=== PATIENT | male | born 1970 | race Caucasian/White ===

== ENCOUNTER 2018-07-05 17:59 | Emergency (ER) | payer OTHER ==
[2018-07-05 18:20] VITALS: TEMP 98.8
[2018-07-05] MEDS ORDERED: MORPHINE SULFATE 4 MG/ML SYRINGE IV STA (19:30)
[2018-07-05] MEDS ORDERED: ASPIRIN 81 MG PO STA (19:30)
[2018-07-05] MEDS ORDERED: SODIUM CHLORIDE 0.9% 1,000 ML IV STA (19:30)
[2018-07-05] MEDS ORDERED: ONDANSETRON 4 MG/2 ML VIAL IVP STA (19:30)
--- NOTE | 2018-07-05 19:30 | ED ---
General Adult HPI - General Chief complaint: Abdominal Pain Stated complaint: Abd.pain Time Seen by Provider: 07/05/18 19:11 Source: patient, RN notes reviewed Mode of arrival: ambulatory Limitations: no limitations - History of Present Illness Initial comments: 48-year-old male presents to the emergency department for a chief complaint of abdominal pain 4 days. Patient states this started as upper abdominal pain and has progressed to lower abdominal pain. He states it is a "sharp, stabbing , cramping" pain around his "beltline". Patient states he did have sharp epigastric pain that has been intermittent as well. Patient admits to a few episodes of diarrhea with the last one being about 30 minutes ago. He denies any shortness of breath, does admit to feelings of tiredness. Patient also has been nauseous, has not had an appetite. Patient saw his primary care provider today who recommended he come to the emergency department for a CAT scan. Patient has no other complaints at this time including shortness of breath, chest pain, vomiting, headache, or visual changes. - Related Data Home Medications Medication Instructions Recorded Confirmed Atenolol [Tenormin] 50 mg PO BID 07/05/18 07/05/18 Atorvastatin [Lipitor] 20 mg PO DAILY 07/05/18 07/05/18 Citalopram Hydrobromide [CeleXA] 20 mg PO DAILY 07/05/18 07/05/18 Empagliflozin [Jardiance] 25 mg PO DAILY 07/05/18 07/05/18 Insulin Aspart [NovoLOG] 0 units SQ DIRECTED 07/05/18 07/05/18 Insulin Glargine [Lantus] 22 unit SQ HS 07/05/18 07/05/18 Multivitamins, Thera [Multivitamin 1 tab PO DAILY 07/05/18 07/05/18 (formulary)] Omeprazole 40 mg PO DAILY 07/05/18 07/05/18 Ondansetron [Zofran] 4 mg PO BID 07/05/18 07/05/18 Pioglitazone [Actos] 30 mg PO MOWEFR 07/05/18 07/05/18 Triamterene-Hctz 37.5-25Mg 1 cap PO DAILY 07/05/18 07/05/18 [Dyazide 37.5-25 Capsule] Varenicline [Chantix Continuing 1 mg PO BID 07/05/18 07/05/18 Pack] metFORMIN HCL 1,000 mg PO BID 07/05/18 07/05/18 Previous Rx's Medication Instructions Recorded Dicyclomine [Bentyl] 20 mg PO TID PRN #20 tablet 07/05/18 Allergies Allergy/AdvReac Type Severity Reaction Status Date / Time No Known Allergies Allergy Verified 07/05/18 21:23 Review of Systems ROS Statement: Those systems with pertinent positive or pertinent negative responses have been documented in the HPI. ROS Other: All systems not noted in ROS Statement are negative. Past Medical History Past Medical History: Diabetes Mellitus, GERD/Reflux, Hypertension History of Any Multi-Drug Resistant Organisms: None Reported Past Surgical History: Back Surgery Additional Past Surgical History / Comment(s): mole removal Past Psychological History: No Psychological Hx Reported Smoking Status: Current every day smoker Past Alcohol Use History: None Reported Past Drug Use History: None Reported General Exam Limitations: no limitations General appearance: alert, in no apparent distress Head exam: Present: atraumatic, normocephalic, normal inspection Eye exam: Present: normal appearance, PERRL, EOMI. Absent: scleral icterus, conjunctival injection, periorbital swelling ENT exam: Present: normal exam, mucous membranes moist Neck exam: Present: normal inspection, full ROM. Absent: tenderness, meningismus, lymphadenopathy Respiratory exam: Present: normal lung sounds bilaterally. Absent: respiratory distress, wheezes, rales, rhonchi, stridor Cardiovascular Exam: Present: regular rate, normal rhythm, normal heart sounds. Absent: systolic murmur, diastolic murmur, rubs, gallop, clicks GI/Abdominal exam: Present: soft, tenderness (Patient is a tenderness in the left upper quadrant, left lower quadrant, right lower quadrant. Tenderness is worse in the lower abdomen. No tenderness in the right upper quadrant), normal bowel sounds. Absent: distended, guarding, rebound, rigid Neurological exam: Present: alert, oriented X3, CN II-XII intact Psychiatric exam: Present: normal affect, normal mood Course Vital Signs 07/05/18 07/05/18 07/05/18 18:17 20:00 21:00 Temperature 98.8 F Pulse Rate 84 81 Respiratory 18 12 18 Rate Blood Pressure 127/83 140/88 124/73 O2 Sat by Pulse 98 94 L 95 Oximetry 07/05/18 07/05/18 07/05/18 22:00 22:30 22:54 Temperature Pulse Rate 84 74 Respiratory 15 50 H 16 Rate Blood Pressure 127/62 121/75 124/74 O2 Sat by Pulse 94 L 95 99 Oximetry EKG Findings - EKG Comments: EKG Findings:: Normal sinus rhythm, ventricular rate 82, ID interval 170, QTc 446, no evidence of ST elevation Medical Decision Making - Medical Decision Making 48-year-old male presents the emergency department for a chief complaint of abdominal pain 4 days. States this started as upper abdominal pain and has progressed to lower abdominal pain. States it is sharp and stabbing and cramping around his belt line. He did have epigastric pain that has been intermittent as well but has improved. He has had a few episodes of diarrhea as well as been nauseous but has not vomited. Exam shows lower abdominal tenderness without guarding, no right upper quadrant tenderness. CBC shows a mild white count of 11, likely reactive. CMP is unremarkable. Troponin is negative. EKG does not show any evidence of ST elevation or depression. Amylase and lipase are within normal limits. CT does not show any acute process. There are small amount of cholelithiasis percent in the lumen. Chest x-ray shows no acute process. Discussed with patient that this time we could do ultrasound of the gallbladder although pain is mostly lower abdomen. Patient states he would rather follow-up and is feeling better at this time. Patient will be given Bentyl for symptom managment. Discussed returning if he has worsening symptoms that she agrees with. - Lab Data Result diagrams: 07/05/18 19:21 07/05/18 19:21 Lab Results 07/05/18 07/05/18 07/05/18 Range/Units 19:21 19:21 19:21 WBC 11.4 H (3.8-10.6) k/uL RBC 5.31 (4.30-5.90) m/uL Hgb 16.7 (13.0-17.5) gm/dL Hct 47.4 (39.0-53.0) % MCV 89.2 (80.0-100.0) fL MCH 31.5 (25.0-35.0) pg MCHC 35.3 (31.0-37.0) g/dL RDW 13.6 (11.5-15.5) % Plt Count 205 (150-450) k/uL Neutrophils % 70 % Lymphocytes % 18 % Monocytes % 7 % Eosinophils % 2 % Basophils % 1 % Neutrophils # 8.0 H (1.3-7.7) k/uL Lymphocytes # 2.0 (1.0-4.8) k/uL Monocytes # 0.8 (0-1.0) k/uL Eosinophils # 0.3 (0-0.7) k/uL Basophils # 0.1 (0-0.2) k/uL PT (9.0-12.0) sec INR (<1.2) APTT (22.0-30.0) sec Sodium 138 (137-145) mmol/L Potassium 4.0 (3.5-5.1) mmol/L Chloride 101 (98-107) mmol/L Carbon Dioxide 26 (22-30) mmol/L Anion Gap 11 mmol/L BUN 15 (9-20) mg/dL Creatinine 0.85 (0.66-1.25) mg/dL Est GFR (CKD-EPI)AfAm >90 (>60 ml/min/1.73 sqM) Est GFR (CKD-EPI)NonAf >90 (>60 ml/min/1.73 sqM) Glucose 131 H (74-99) mg/dL POC Glucose (mg/dL) (75-99) mg/dL POC Glu [employer] Calcium 9.5 (8.4-10.2) mg/dL Magnesium 1.8 (1.6-2.3) mg/dL Total Bilirubin 0.6 (0.2-1.3) mg/dL AST 25 (17-59) U/L ALT 44 (21-72) U/L Alkaline Phosphatase 66 (38-126) U/L Total Creatine Kinase 170 (55-170) U/L CK-MB (CK-2) 2.7 H (0.0-2.4) ng/mL CK-MB (CK-2) Rel Index 1.6 Troponin I <0.012 (0.000-0.034) ng/mL Total Protein 7.9 (6.3-8.2) g/dL Albumin 4.6 (3.5-5.0) g/dL Amylase 36 (30-110) U/L Lipase 105 (23-300) U/L 01/08/19 01/08/19 Range/Units 19:21 19:47 WBC (3.8-10.6) k/uL RBC (4.30-5.90) m/uL Hgb (13.0-17.5) gm/dL Hct (39.0-53.0) % MCV (80.0-100.0) fL MCH (25.0-35.0) pg MCHC (31.0-37.0) g/dL RDW (11.5-15.5) % Plt Count (150-450) k/uL Neutrophils % % Lymphocytes % % Monocytes % % Eosinophils % % Basophils % % Neutrophils # (1.3-7.7) k/uL Lymphocytes # (1.0-4.8) k/uL Monocytes # (0-1.0) k/uL Eosinophils # (0-0.7) k/uL Basophils # (0-0.2) k/uL PT 9.5 (9.0-12.0) sec INR 0.9 (<1.2) APTT 24.8 (22.0-30.0) sec Sodium (137-145) mmol/L Potassium (3.5-5.1) mmol/L Chloride (98-107) mmol/L Carbon Dioxide (22-30) mmol/L Anion Gap mmol/L BUN (9-20) mg/dL Creatinine (0.66-1.25) mg/dL Est GFR (CKD-EPI)AfAm (>60 ml/min/1.73 sqM) Est GFR (CKD-EPI)NonAf (>60 ml/min/1.73 sqM) Glucose (74-99) mg/dL POC Glucose (mg/dL) 134 H (75-99) mg/dL POC Glu [employer] Elli Russell Calcium (8.4-10.2) mg/dL Magnesium (1.6-2.3) mg/dL Total Bilirubin (0.2-1.3) mg/dL AST (17-59) U/L ALT (21-72) U/L Alkaline Phosphatase (38-126) U/L Total Creatine Kinase (55-170) U/L CK-MB (CK-2) (0.0-2.4) ng/mL CK-MB (CK-2) Rel Index Troponin I (0.000-0.034) ng/mL Total Protein (6.3-8.2) g/dL Albumin (3.5-5.0) g/dL Amylase (30-110) U/L Lipase (23-300) U/L Disposition Clinical Impression: Abdominal pain Disposition: HOME SELF-CARE Condition: Good Instructions: Abdominal Pain (ED) Additional Instructions: Please follow up with primary care in 1-2 days. Follow up with GI as well. Take Bentyl as directed. Return immediately to the emergency department if you have any worsening symptoms. Prescriptions: Dicyclomine [Bentyl] 20 mg PO TID PRN #20 tablet PRN Reason: Pain Is patient prescribed a controlled substance at d/c from ED?: No Referrals: Benito Cotter MD [STAFF PHYSICIAN] - 1-2 days Jordan Barker MD [STAFF PHYSICIAN] - 1-2 days Time of Disposition: 22:55
[2018-07-05 20:08] LABS: Basophils # (A) 0.1 k/uL (0-0.2); Basophils % (A) 1 %; Eosinophils # (A) 0.3 k/uL (0-0.7); Eosinophils % (A) 2 %; HCT 47.4 % (39.0-53.0); HGB 16.7 gm/dL (13.0-17.5); Lymphocytes % (A) 18 %; MCH 31.5 pg (25.0-35.0); MCHC 35.3 g/dL (31.0-37.0); MCV 89.2 fL (80.0-100.0); Mean Platelet Volume 7.4; Monocytes # (A) 0.8 k/uL (0-1.0); Monocytes % (A) 7 %; Neutrophils % (A) 70 %; Platelet Count 205 k/uL (150-450); RBC 5.31 m/uL (4.30-5.90); RDW 13.6 % (11.5-15.5); WBC 11.4 k/uL (3.8-10.6)
[2018-07-05 20:08] LABS: Glucose,Whole Blood 134 mg/dL (75-99)
[2018-07-05 20:17] LABS: INR 0.9 (<1.2); Partial Thromboplastin Time 24.8 sec (22.0-30.0); Prothrombin Time 9.5 sec (9.0-12.0)
[2018-07-05 20:19] LABS: ALT 44 U/L (21-72); AST 25 U/L (17-59); Albumin 4.6 g/dL (3.5-5.0); Alkaline Phosphatase 66 U/L (38-126); Amylase 36 U/L (30-110); Anion Gap 11 mmol/L; Blood Urea Nitrogen 15 mg/dL (9-20); Calcium 9.5 mg/dL (8.4-10.2); Carbon Dioxide 26 mmol/L (22-30); Chloride 101 mmol/L (98-107); Glucose 131 mg/dL (74-99); Lipase 105 U/L (23-300); Magnesium 1.8 mg/dL (1.6-2.3); Sodium 138 mmol/L (137-145); Total Bilirubin 0.6 mg/dL (0.2-1.3); Total Protein 7.9 g/dL (6.3-8.2)
[2018-07-05 20:21] LABS: Creatine Kinase 170 U/L (55-170)
[2018-07-05 20:34] LABS: Creatine Kinase MB 2.7 ng/mL (0.0-2.4); Troponin I <0.012 ng/mL (0.000-0.034)
--- NOTE | 2018-07-05 21:59 | XR ---
EXAMINATION: XR chest 2V DATE AND TIME: 07/05/2018 9:44 PM CLINICAL INDICATION: PHH; Chest Pain TECHNIQUE: Departmental protocol COMPARISON: None FINDINGS: The hemidiaphragms are elevated consistent with lung inflation at the moment of x-ray exposure. The lungs appear to be clear. The pleural spaces are negative. The cardiac silhouette is not enlarged. The remainder of the mediastinal silhouette is unremarkable. The skeletal structures and soft tissues are negative for acute findings. IMPRESSION: NO DEFINITE ACUTE PROCESS.
--- NOTE | 2018-07-05 22:06 | CT ---
EXAMINATION TYPE: CT abdomen pelvis w con DATE OF EXAM: 07/05/2018 COMPARISON: HISTORY: Abdominal pain x4 days. CT DLP: 1814.9 mGycm Automated exposure control for dose reduction was used. TECHNIQUE: Helical acquisition of images was performed from the lung bases through the pelvis. CONTRAST: Performed without Oral Contrast and with IV Contrast, patient injected with 100ml mL of Isovue 300. FINDINGS: LUNG BASES: No significant abnormality is appreciated. LIVER/GB: No significant abnormality is appreciated. However, cholelithiasis occupies approximately 5 % of the lumen of the gallbladder. The gallbladder has otherwise normal appearance. PANCREAS: No significant abnormality is seen. SPLEEN: No significant abnormality is seen. ADRENALS: No significant abnormality is seen. KIDNEYS: No significant abnormality is seen. FREE AIR: No free air is visualized. RETROPERITONEAL ADENOPATHY: None visualized REPRODUCTIVE ORGANS: No significant abnormality is seen URINARY BLADDER: No significant abnormality is seen. PELVIC ADENOPATHY: None visualized. OSSEOUS STRUCTURES: No significant abnormality is seen. BOWEL: No significant abnormality is seen. OTHER: No acute vascular findings. IMPRESSION: NO ACUTE PROCESS.
[2018-07-05 22:55] VITALS: BP 124/74; PULSE 74; RESP 16
== END 2018-07-05 22:59 | disposition home or self-care (01) ==
LOC: EC 17:59
DX: R10.30 Lower abdominal pain, unspecified (principal); R10.13 Epigastric pain; R10.10 Upper abdominal pain, unspecified; K80.20 Calculus of gallbladder without cholecystitis without obstruction; R19.7 Diarrhea, unspecified; R11.0 Nausea; R53.83 Other fatigue; R63.0 Anorexia; I10 Essential (primary) hypertension; E11.9 Type 2 diabetes mellitus without complications; K21.9 Gastro-esophageal reflux disease without esophagitis; F17.200 Nicotine dependence, unspecified, uncomplicated; Z79.4 Long term (current) use of insulin; Z79.899 Other long term (current) drug therapy
CPT/HCPCS: 36415; 93005; 80053; 82150; 82550; 82553; 83690; 83735; 84484; 85025; 85610; 85730; 71046; 74177; 99284; 96374; 96375; 96361; J2270; J2405; Q9967

== ENCOUNTER → 2018-08-22 | Outpatient (CLI) | payer OTHER ==
--- NOTE | 2018-08-22 16:37 | US ---
EXAMINATION TYPE: US abdomen complete DATE OF EXAM: 08/22/2018 COMPARISON: CT 2019 CLINICAL HISTORY: R10.84 Generalized abdominal pain. Intermittent epigastric and back pain and nausea x 2 months, gallstones seen on recent CT. EXAM MEASUREMENTS: Liver Length: 21.1 cm , normal less than 15.5 cm. Gallbladder Wall: 0.2 cm CBD: 0.5 cm Spleen: 12.3 cm Right Kidney: 12.7 x 6.7 x 5.7 cm Left Kidney: 12.1 x 6.2 x 6.2 cm Difficult and limited study due to patient body habitus Pancreas: obscured by overlying midline bowel gas Liver: enlarged, heterogeneous, attenuating, increased echogenicity, decreased visualization of vess els suggestive of fatty infiltrate Gallbladder: cholelithiasis Evidence for sonographic Griggs's sign: no CBD: visualized portions wnl, limited by overlying bowel gas Spleen: wnl Right Kidney: wnl Left Kidney: wnl Upper IVC: wnl Abd Aorta: visualized portions wnl, limited by overlying midline bowel gas IMPRESSION: 1. Exam limited due to patient body habitus. 2. Cholelithiasis. 3. Moderate fatty infiltration of the enlarged liver
== END | disposition home or self-care (01) ==
LOC: RADUSWWP 06:47
PROVIDERS: ATTEND Family Medicine
DX: K80.20 Calculus of gallbladder without cholecystitis without obstruction (principal); K76.0 Fatty (change of) liver, not elsewhere classified
CPT/HCPCS: 76700

== ENCOUNTER → 2019-03-30 | Outpatient (CLI) | payer OTHER ==
--- NOTE | 2019-03-30 22:33 | MR ---
EXAMINATION TYPE: MR knee LT wo con DATE OF EXAM: 03/30/2019 COMPARISON: NONE HISTORY: Left knee pain/effusion/osseous loose body/possible medial meniscal tear OR order. TECHNIQUE: Multiplanar, multisequence images of the knee is performed without IV contrast. FINDINGS: MEDIAL MENISCUS: Anterior horn is intact without tear. Posterior horn has faint oblique increased sig nal believed extending to inferior articular surface sagittal image 25. LATERAL MENISCUS: Anterior and posterior horns are intact without tear. CRUCIATE LIGAMENTS: The anterior and posterior cruciate ligaments are intact and unremarkable. COLLATERAL LIGAMENTS: The medial collateral ligament and lateral collateral ligament complex are inta ct and unremarkable. EXTENSOR MECHANISM: Visualized quadriceps and patellar tendons are intact. EFFUSION: There is small suprapatellar joint effusion. POPLITEAL CYST: There is moderate size popliteal/ohara cyst measuring 5.1 cm long axis sagittal image 21. TRICOMPARTMENT SPACES: Moderate narrowing patellofemoral compartment. Mild narrowing medial and later al tibiofemoral compartments. Mild to moderate tricompartment joint space spurring most prominent pat ellofemoral compartment CARTILAGE: . Chondromalacia patella with full-thickness cartilaginous loss along the superior aspect of posterior patellar pole. Some thinning of articular cartilage medial tibiofemoral compartment. BONE MARROW SIGNAL: Heterogeneity consistent with red marrow reconversion. Some heterogeneous increas ed T2 signal superior aspect posterior patellar pole axial image 21 for reference. OTHER: No additional significant abnormality is appreciated. IMPRESSION: 1. Fairly moderate tricompartment degenerative changes most prominent patellofemoral compartment wher e there is significant chondromalacia patella noted along superior portion of the joint space. 2. At least intrasubstance suspected full-thickness tear posterior horn medial meniscus. 3. Moderate size popliteal cyst. 4. Small suprapatellar joint effusion.
== END | disposition home or self-care (01) ==
LOC: RADMRIMAIN 16:38
PROVIDERS: ATTEND Orthopaedic Surgery Sports Medicine
DX: M17.12 Unilateral primary osteoarthritis, left knee (principal); M22.42 Chondromalacia patellae, left knee; M71.22 Synovial cyst of popliteal space [Baker], left knee

== ENCOUNTER 2020-03-29 09:11 | Day surgery (SDC) | payer OTHER ==
[2020-03-27 15:53] VITALS: BMI 39.0
[~2020-03-29 09:11] MED LIST: ACETAMINOPHEN TAB 500 MG TAB PO ONE; DEXAMETHASONE SOD PHOSPHATE 10 MG/ML 1 ML VIAL IV ONE; HEPARIN SODIUM,PORCINE 5,000 UNIT/ML 1 ML VIAL SQ ONE; KETOROLAC 15 MG/ML 1 ML VIAL IVP SCH; LACTATED RINGERS 1,000 ML IV SCH; LIDOCAINE 1% (10MG/ML) FOR IV START INTRADERMA PRN; METOCLOPRAMIDE 5 MG/ML 2 ML VIAL IVP PRN; ONDANSETRON 4 MG/2 ML VIAL IVP ONE; SCOPOLAMINE 1.5MG/72HR PATCH TRANSDERM ONE; ceFAZolin 3 GM in SODIUM CHLORIDE 0.9% 100 ML IVPB ONE
[2020-03-29 09:57] LABS: Glucose,Whole Blood 139 mg/dL (75-99)
[2020-03-29 10:21] VITALS: RESP 16
[2020-03-29] MEDS ORDERED: PROPOFOL 10 MG/ML 20 ML VIAL IV ONE ×2 (10:37)
[2020-03-29] MEDS ORDERED: LIDOCAINE 1% INJ 10MG/ML (20 ML MDV) ONE (10:37)
[2020-03-29] MEDS ORDERED: ROCURONIUM BROMIDE 10 MG/ML 5 ML VIAL IV ONE (10:37)
[2020-03-29] MEDS ORDERED: HYDROmorphone (PF) 1 MG/ML ONE (10:37)
[2020-03-29] MEDS ORDERED: fentaNYL (PF) 50 MCG/ML 2 ML AMP ONE (10:37)
[2020-03-29] MEDS ORDERED: MIDAZOLAM 2 MG/2 ML VIAL ONE (10:37)
[2020-03-29] MEDS ORDERED: BUPIVACAINE (PF) 0.25% 30 ML VIAL SQ ONE (10:49)
[2020-03-29] MEDS ORDERED: LACTATED RINGERS 1,000 ML IV ONE (11:46)
[2020-03-29 12:09] VITALS: TEMP 97.4
[2020-03-29] MEDS ORDERED: NALOXONE 0.4 MG/ML 1 ML VIAL IV PRN (12:12)
[2020-03-29] MEDS ORDERED: HYDROcodone/APAP 5-325MG 1 EACH TAB PO PRN (12:12)
--- NOTE | 2020-03-29 12:16 | P.OP ---
Date of Procedure: 03/29/20 Procedure(s) Performed: PREOPERATIVE DIAGNOSIS: Chronic cholecystitis POSTOPERATIVE DIAGNOSIS: Same PROCEDURE: Laparoscopic cholecystectomy SURGEON: Val EBL: Minimal see anesthesia record ANESTHESIA: Gen. COMPLICATIONS: None OPERATIVE PROCEDURE: The patient was brought and placed on the operating room table in the supine position. The patient was placed under general anesthesia at that time. The abdomen was prepped and draped in the usual sterile fashion. A small vertical infraumbilical incision was made. The fascia was grasped with the Abiel forceps. The fascia was retracted anteriorly. The Veress needle was advanced into the peritoneal cavity. The saline drop test was normal. Insufflation took place up to 15 mmHg. A 5 mm optical trocar was advanced and the peritoneal cavity. 2 additional 5 mm trochars were placed in the right upper quadrant under direct visualization. A 12 mm trocar was advanced into the epigastric incision site. The gallbladder was retracted superiorly and laterally. The peritoneum overlying the infundibulum was bluntly dissected. The patient's cystic duct was visualized. The junction between the cystic duct common and hepatic duct was identified. The cystic duct was then divided after placement of 3 12 mm clips on the patient's side and one on the specimen side. The cystic artery was identified and clipped as well. A small vessel was seen along the gallbladder fossa and clipped as well. The gallbladder was then removed from the liver bed using electrocautery. The gallbladder was then removed from the epigastric trocar site with an Endo Catch bag. The gallbladder fossa was irrigated with saline. There was no evidence of any bleeding or biliary drainage seen. The fascia at the 12 millimeter site was closed using a Torey-González 0 Vicryl stitch. The trochars were then removed. The skin at all 4 sites was closed using a 4-0 Monocryl stitch. Skin glue was utilized on the incision sites. At the end of this procedure the sponge and needle counts were correct. DISPOSITION: Stable to the recovery room
[2020-03-29] MEDS: HYDROmorphone 0.5 MG/0.5 ML SYRINGE IVP PRN ×2 (12:20→12:45)
[2020-03-29 12:46] LABS: Glucose,Whole Blood 178 mg/dL (75-99)
[2020-03-29 13:40] VITALS: BP 107/61; PULSE 86
== END 2020-03-29 14:21 | disposition home or self-care (01) ==
LOC: OR 09:11
PROVIDERS: ATTEND Surgery
DX: K80.10 Calculus of gallbladder with chronic cholecystitis without obstruction (principal); E11.9 Type 2 diabetes mellitus without complications; K21.9 Gastro-esophageal reflux disease without esophagitis; I10 Essential (primary) hypertension; E78.5 Hyperlipidemia, unspecified; G47.33 Obstructive sleep apnea (adult) (pediatric); E66.9 Obesity, unspecified; Z79.4 Long term (current) use of insulin; Z79.1 Long term (current) use of non-steroidal anti-inflammatories (NSAID); Z79.899 Other long term (current) drug therapy; Z79.891 Long term (current) use of opiate analgesic; Z98.890 Other specified postprocedural states; Z83.3 Family history of diabetes mellitus; Z82.49 Family history of ischemic heart disease and other diseases of the circulatory system; Z99.89 Dependence on other enabling machines and devices; Z87.891 Personal history of nicotine dependence; Z68.38 Body mass index [BMI] 38.0-38.9, adult
CPT/HCPCS: 88304; 47562; J2250; J1644; J1100; J0690; J2405; J2001; J3010; J1170 ×2; J1885; J2704

== ENCOUNTER → 2020-05-27 | Outpatient (CLI) | payer OTHER ==
--- NOTE | 2020-05-27 15:39 | XR ---
EXAMINATION TYPE: XR thoracic spine complete DATE OF EXAM: 05/27/2020 COMPARISON: NONE HISTORY: Chronic back pain. TECHNIQUE: 3 views submitted FINDINGS: Alignment is anatomic. There is no compression deformities. Hypertrophic and degenerative change of the spine. No compression deformities. Surgical clips in the gallbladder fossa. IMPRESSION: 1. Multilevel hypertrophic and degenerative change.
== END | disposition home or self-care (01) ==
LOC: RADXRMAIN 15:13
PROVIDERS: ATTEND Family Medicine
DX: M47.814 Spondylosis without myelopathy or radiculopathy, thoracic region (principal); M89.38 Hypertrophy of bone, other site
CPT/HCPCS: 72072

== ENCOUNTER → 2020-08-23 | Outpatient (CLI) | payer OTHER ==
--- NOTE | 2020-08-24 07:44 | MR ---
EXAMINATION TYPE: MR thoracic spine wo con DATE OF EXAM: 08/23/2020 COMPARISON: Thoracic spine x-ray August 23, 2020. HISTORY: Pain in thoracic spine for 3 months, prior surgery 20+ years ago. TECHNIQUE: Multiplanar, multisequence imaging of thoracic spine is performed without contrast FINDINGS: There is slight dextroconvex scoliotic curvature positioning centered operative midthoracic spine redemonstrated. Spinal cord shows normal caliber and signal as it courses the thoracic spine. Vertebral body heights and alignment are satisfactory. Disc space heights are maintained. Large po sterior disc herniation effaces the anterior thecal sac at T8-T9 level sagittal image 12. Smaller pos terior disc herniations noted T5-T6, T7-T8, T9-T10, T10-T11, and T11-T12 levels on sagittal images. B one marrow signal intensity is preserved. Mild to moderate multilevel anterior and lateral spurring i n the mid to lower thoracic spine is redemonstrated. Review of the axial images confirms largest disc herniation or left paracentral protrusion at T8-T9 l evel effacing left anterolateral thecal sac up to ventral surface of spinal cord which is indented on image 17 series 601. Similar prominent disc herniation T9-T10 level noted on image 15 series 601. S lightly less prominent disc herniations at T10-T11 level and other levels identified on sagittal imag es. T12-L1 level shows broad-based posterior disc protrusion effacing the anterior thecal sac along w ith mild/moderate facet arthropathy and ligament flavum hypertrophy pacing posterior lateral thecal s ac on image 2. Visualized thorax and upper abdomen are grossly unremarkable. IMPRESSION: Scoliotic curvature with multilevel degenerative changes, most prominent disc herniation noted at T8-T9 level. Further details as noted above.
== END | disposition home or self-care (01) ==
LOC: RADMRIMAIN 17:01
PROVIDERS: ATTEND Physical Medicine & Rehabilitation
DX: M51.24 Other intervertebral disc displacement, thoracic region (principal); E11.9 Type 2 diabetes mellitus without complications; M47.814 Spondylosis without myelopathy or radiculopathy, thoracic region; M41.26 Other idiopathic scoliosis, lumbar region; M41.84 Other forms of scoliosis, thoracic region
CPT/HCPCS: 72146

== ENCOUNTER 2020-10-11 07:18 | Day surgery (SDC) | payer OTHER ==
[2020-10-09 10:36] VITALS: BMI 39.0
[2020-10-11] MEDS ORDERED: LIDOCAINE 1% (10MG/ML) FOR IV START INTRADERMA ONE (07:41)
[2020-10-11] MEDS ORDERED: LACTATED RINGERS 1,000 ML IV ONE (07:41)
[2020-10-11 07:44] VITALS: TEMP 97.2
[2020-10-11 07:44] LABS: Glucose,Whole Blood 208 mg/dL (75-99)
[2020-10-11] MEDS ORDERED: INSULIN ASPART (NovoLOG) 100 UNIT/ML VIAL SQ ONE (07:47)
[2020-10-11] MEDS ORDERED: IOPAMIDOL M200 10 ML VIAL ONE (08:31)
[2020-10-11] MEDS ORDERED: TRIAMCINOLONE ACETONIDE 40 MG/ML 1 ML VIAL ONE (08:31)
[2020-10-11] MEDS ORDERED: LIDOCAINE 1% INJ 10MG/ML (20 ML MDV) ONE (08:31)
[2020-10-11] MEDS ORDERED: fentaNYL (PF) 50 MCG/ML 2 ML AMP ONE (08:32)
[2020-10-11] MEDS ORDERED: MIDAZOLAM 2 MG/2 ML VIAL ONE (08:32)
--- NOTE | 2020-10-11 09:02 | P.PCN ---
Date of Procedure: 10/11/20 Description of Procedure: PREOPERATIVE DIAGNOSIS: Thoracic radiculopathy POSTOPERATIVE DIAGNOSIS: Same PROCEDURE PERFORMED: Interlaminar Epidural Steroid Injection at the T8-T9 level, with a right paramedian approach under fluoroscopic guidance SURGEON: Jason Dinh MD ANESTHESIA: Local with 1% lidocaine 3 ml and IV sedation with Versed and fentanyl, Fluoroscopy was used for the procedure and images were saved in the radiology portion of the chart. EBL: Minimal PROCEDURE INDICATION: The patient presents with lumbar radicular symptoms unresponsive to conservative treatment. This is the [first/ second] cervical epidural steroid injection PROCEDURE DESCRIPTION / TECHNIQUE: The patient was seen and identified in the preoperative area. Risks, benefits, complications including but not limited to infections ,bleeding ,allergic reaction to the medications ,nerve damage and incomplete pain relief, and alternatives were discussed with the patient. The patient agreed to proceed with the procedure and signed the consent. IV was started, and vital signs were stable. Patient was taken to the OR and time out was completed. The patient was placed in the prone position on procedure table and a pillow was placed under the chest area. The cervical area was prepped and draped in the usual sterile fashion. Conscious sedation was used during the procedure to decrease patients anxiety. Vital signs was monitored during the entire procedure. Using anterior-posterior fluoroscopy, the T8-T9 interlaminar space was identified and the skin over this site was marked and then infiltrated with 1% lidocaine subcutaneously. Subsequently, a 20-gauge Tuohy epidural needle was inserted and advanced toward the epidural space using the loss of resistance technique and guided by AP and lateral views. The correct needle position in the epidural space was verified. After negative aspiration for blood and CSF and in the absence of paresthesias, Isovue 200 2 mL's was injected under live fluoroscopy with good epidural spread. After negative aspiration, a 5 mL mixture containing 3 mL PFNS, 1 mL lidocaine 1%, and 40 mg kenalog. Needle was withdrawn intact, skin was cleansed, and bandages were applied. COMPLICATIONS: None DISPOSITION / PLANS: The patient was placed in a supine position and transferred to the recovery area in a stable condition for observation. There was no evidence of lower extremity motor or sensory deficit after the procedure. Patient was discharged from the recovery room after meeting discharge criteria. Home discharge instructions were given to the patient by the staff. The patient will be scheduled a repeat procedure in the clinic in 2-4 weeks.
[2020-10-11] MEDS ORDERED: IV FLUID CONTINUATION 1,000 ML IV ONE (09:07)
[2020-10-11 09:24] VITALS: BP 128/81; PULSE 88; RESP 16
--- NOTE | 2020-10-11 09:45 | FL ---
EXAMINATION TYPE: FL guided pain mgmt statistic DATE OF EXAM: 10/11/2020 HISTORY: Fluoroscopy time 1 minute and 12 seconds of fluoroscopy provided. IMPRESSION: 1. Fluoroscopy time.
--- NOTE | 2020-10-16 13:30 | CDI ---
Outpatient Documentation Clarification Form Date: 10/16/20 CDS/Service Learning Coordinator Name: Carmen Black Phone: If any questions, call Janel [facility] Lay Out Drafter at [phone] Patient Name: Vikash Pollard Admit Date: 10/11/20 Discharge Date: 10/11/20 ATTENTION: The [facility] Coding Staff appreciate your assistance in clarifying documentation. Please respond to the clarification below the line at the bottom and electronically sign. The [facility] Coding staff will review the response and follow-up if needed. Please note: Queries are made part of the Legal Health Record. If you have any questions, please contact the Lay Out Drafter. Dear Dr. Dinh, Please provide clarification as to the type of spinal injections was performed. Procedure note states Interlaminar and Anesthesia record states Transforaminal. Please clarify. Thank you for your kind consideration. MTDD
== END 2020-10-11 09:37 | disposition home or self-care (01) ==
LOC: ORPAIN 07:18
PROVIDERS: ATTEND Anesthesiology
DX: M54.14 Radiculopathy, thoracic region (principal); R20.0 Anesthesia of skin; Z79.899 Other long term (current) drug therapy; Z87.891 Personal history of nicotine dependence; Z82.49 Family history of ischemic heart disease and other diseases of the circulatory system; Z83.3 Family history of diabetes mellitus; Z79.4 Long term (current) use of insulin
CPT/HCPCS: 62321; J2250; J3301; J2001; J3010; Q9966; 64483

== ENCOUNTER → 2020-11-13 | Outpatient (CLI) | payer OTHER ==
--- NOTE | 2020-11-13 14:06 | P.PN ---
Subjective Progress Note Date: 11/13/20 This is a 50-year-old patient with 4 months history of mid back pain with r adiation to the chest anteriorly. This pain started with no precipitating events. 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 We did have thoracic epidural steroid injection at the T8-T9 level in the right paramedian approach about 4 weeks ago which gave him significantly for pain. He does not have the radicular part of his pain anymore so there is no chest wall pain on the right side anymore. His pain is improved by at least 60% as he states. He is able to do more activities and to cut down on his medications . His pain now is mostly around his right shoulder blade. His pain does not get worse by moving the right shoulder or by taking a deep breath. Patient denies new-onset weakness, bowel/bladder incontinence, or any other signs or symptoms of cauda equina syndrome. There are no signs of acute intoxication, and no indications of medication diversion or overuse. In addition to above, 13-point review of systems is also negative for chest pain, shortness of breath, changes in vision, changes in hearing, new onset weakness, abdominal pain, diarrhea, extreme fatigue, malaise, fever, skin changes, homicidal or suicidal ideation, or bowel or bladder incontinence. Vital Signs: Reviewed in EMR Gen: AAOx3, NAD HEENT: PERRLA,hearing grossly normal Pulm: resp unlabored Neck: supple, trachea midline Neuro exam of the lower extremities: Straight leg raising test: Denis's test: Range of motion of the lumbar spine: Facet loading test: Tenderness in the paravertebral musculature: No tenderness in the thoracic paravertebral musculature Normal range of motion of the right shoulder joint Neuro: CN II-XII grossly intact, Imaging: Reviewed in EMR/chart Assessment: Right thoracic radiculopathy due to disc herniation at T8-T9 level significantly improved by fluoroscopy epidural steroid injection at the same level. Diabetes Morbid obesity Plan: 1. Explanation: Opioid and psychological risk scores were reviewed. Diagnoses, prognoses, and multiple treatment options including but not limited to physical therapy, interventional therapies, adjuvant medical therapies, narcotic medication therapies, and surgery were discussed with the patient and all questions were answered to the patient's satisfaction. 2. Opioid agreement: Signed with the patient and the patient is warned not to use opioids while driving or before driving and not to combine opioids with benzodiazepines or alcohol. 3. Counseling: The patient was counseled extensively on SMOKING CESSATION, BODY MASS INDEX, EXERCISE. Specifically, the patient was instructed regarding the importance of smoking cessation, obesity, and exercise in the context of both chronic pain and overall health. 4. Procedures: The patient may still benefit greatly from a second thoracic epidural steroid injection in the T8-T9 level on the right paramedian approach. He responded favorably to the first injection with ability to increase activities, and decreased dependence on medications. 5. Consultations: None 6. Investigations: None 7. Medications: None prescribed 8. Disposition: Proceed with the above-mentioned procedure as soon as approved by his insurance 9. Maps were reviewed and were appropriate. Objective - Vital Signs Vital signs: Vital Signs Temp 97.8 F 11/13/20 13:52 Pulse 79 11/13/20 13:52 Resp 18 11/13/20 13:52 BP 131/80 11/13/20 13:52 Pulse Ox 96 11/13/20 13:52 Intake & Output 11/12/20 11/13/20 11/13/20 18:59 06:59 18:59 Weight 124.861 kg
== END ==
CPT/HCPCS: 99211

== ENCOUNTER 2021-03-11 08:52 | Day surgery (SDC) | payer OTHER ==
[2021-03-10 09:42] VITALS: BMI 39.3
[2021-03-11] MEDS: LACTATED RINGERS 1,000 ML IV SCH ×2 (09:10→09:39)
[2021-03-11] MEDS ORDERED: LIDOCAINE 1% (10MG/ML) FOR IV START INTRADERMA ONE (09:10)
[2021-03-11 09:28] LABS: Glucose,Whole Blood 176 mg/dL (75-99)
[2021-03-11 09:33] VITALS: TEMP 97
[2021-03-11] MEDS ORDERED: MIDAZOLAM 2 MG/2 ML VIAL ONE (09:40)
[2021-03-11] MEDS ORDERED: fentaNYL (PF) 50 MCG/ML 2 ML AMP ONE (09:40)
[2021-03-11] MEDS ORDERED: ROPIVACAINE 5MG/ML 20ML VIAL ONE (09:40)
[2021-03-11] MEDS ORDERED: IOPAMIDOL M200 10 ML VIAL ONE (09:40)
[2021-03-11] MEDS ORDERED: TRIAMCINOLONE ACETONIDE 40 MG/ML 1 ML VIAL ONE (09:40)
--- NOTE | 2021-03-11 10:10 | P.PCN ---
Date of Procedure: 03/11/21 Preoperative Diagnosis: Thoracic radiculopathy Postoperative Diagnosis: Same as above Procedure(s) Performed: The thoracic epidural steroid injection under fluoroscopic guidance at the T8 9 level in the right paramedian approach. Surgeon: Herlinda Aleman Pathology: none sent Condition: stable Disposition: PACU Description of Procedure: ANESTHESIA: Local with 1% lidocaine; and IV moderate conscious sedation with Versed and fentanyl EBL: Minimal PROCEDURE INDICATION: The patient with low back pain and radiculitis symptoms unresponsive to conservative treatment. Fluoroscopy was used to optimize visualization of the needle placement and to maximize safety. PROCEDURE DESCRIPTION / TECHNIQUE: The patient was seen and identified in the preoperative area. Risks, benefits, complications including but not limited to infections ,bleeding ,allergic reaction to the medications ,nerve damage and not complete pain relief , and alternatives were discussed with the patient. The patient agreed to proceed with the procedure and signed the consent. IV was started, and vital signs were stable. Patient was taken to the OR and time out was completed. The patient was placed in the prone position on procedure table and a pillow was placed under the abdomen to reduce lumbar lordosis. The lumbosacral area was prepped and draped in the usual sterile fashion with ChloraPrep.Patient was closely monitored during the procedure. Conscious sedation was used during the procedure to decrease patients anxiety. Vital signs were monitered during the entire procedure. Using anterior-posterior fluoroscopy, the T8-9 interlaminar space was identified and the skin over this site was marked and then infiltrated with 1% lidocaine subcutaneously. Subsequently, a 20-gauge Tuohy epidural needle was inserted and advanced toward the epidural space using the Loss of resistance to air technique and guided by AP and lateral fluoroscopy. Skin entry site was about 1-1/2 levels below the T8 9 level in the right paramedian approach. The correct needle position in the epidural space was verified with the injection of 1 mL of the water soluble contrast dye Omnipaque 180 contrast and observing an excellent epidurogram with the epidural spread of the dye, after negative aspiration for blood and CSF and in the absence of paresthesias. Again after negative aspiration, a 8 ml mixture containing 40 mg of Kenalog and 5 ml of preservative free Normal Saline, and 2 ml of preservative free ropivacaine 0.5% solution was injected and a washout of epidurogram was seen. Needle was withdrawn intact, skin was cleansed, and bandages were applied. patient tolerated procedure well and was transferred to PACU in stable condition.A copy of the needle placement picture was saved to the fluoroscopy machine. COMPLICATIONS: None DISPOSITION / PLANS: The patient was placed in a supine position and transferred to the recovery area in a stable condition for observation. There was no evidence of lower extremity motor or sensory deficit after the procedure. Patient was discharged from the recovery room after meeting discharge criteria. Home discharge instructions were given to the patient by the staff. The patient was reexamined prior to discharge. The patient will schedule a follow up in the clinic in 2-4 weeks.
[2021-03-11 10:21] LABS: Glucose,Whole Blood 158 mg/dL (75-99)
[2021-03-11 10:31] VITALS: BP 125/63; PULSE 89; RESP 16
[2021-03-11] MEDS ORDERED: IV FLUID CONTINUATION 1,000 ML IV ONE (10:35)
--- NOTE | 2021-03-11 10:55 | FL ---
EXAMINATION TYPE: FL guided pain mgmt statistic DATE OF EXAM: 03/11/2021 HISTORY: Fluoroscopy time 52 seconds of fluoroscopy provided. IMPRESSION: 1. Fluoroscopy time.
== END 2021-03-11 10:55 | disposition home or self-care (01) ==
LOC: ORPAIN 08:52
PROVIDERS: ATTEND Anesthesiology
DX: M54.14 Radiculopathy, thoracic region (principal)
CPT/HCPCS: 62321; J2250; J3301; J3010; Q9966; J2795; 99152; 99153

== ENCOUNTER → 2021-03-25 | Outpatient (CLI) | payer OTHER ==
--- NOTE | 2021-03-25 12:46 | NM ---
EXAMINATION TYPE: NM gastric emptying static DATE OF EXAM: 03/25/2021 COMPARISON: NONE HISTORY: Epigastric pain Following administration of 2.0 mCi Tc 99m Sulfur Colloid with 4 ounces scrambled eggs, two pieces of toast with butter/jam & 20 ounces of water, projection images of the abdomen were obtained 10 minute s post ingestion. Patient Emptying Values 1 Hour 69 % 2 Hours 87 % 3 Hours 100 % 4 Hours 98 % Gastroesophagel reflux: None IMPRESSION: Gastric emptying: Normal Gastroesophageal reflux: None
== END | disposition home or self-care (01) ==
LOC: RADNMMAIN 06:41
PROVIDERS: ATTEND Surgery
DX: R10.13 Epigastric pain (principal)
CPT/HCPCS: 78264; A9541

== ENCOUNTER → 2021-04-07 | Outpatient (CLI) | payer OTHER ==
[2021-04-07 14:07] VITALS: BP 139/81; PULSE 85; RESP 18; TEMP 97.8
--- NOTE | 2021-04-07 14:33 | P.PN ---
Subjective Progress Note Date: 04/07/21 This is follow-up visit for this 51 years old male with a chronic history of mid back pain is diagnosed with thoracic radiculopathy, previously we have done thoracic epidural steroid injection at T8 9 levels, and these injection provided him with significant pain relief, he had almost 60% improvement of his pain, he had improvement in his ability to function and do activities of daily livings, he had no motor or sensory deficits, and his by mouth intake of the pain medication decreases significantly, continue to use Aleve daily at bedtime which providing him with some relief Objective - Vital Signs Vital signs: Vital Signs Temp 97.8 F 04/07/21 14:03 Pulse 85 04/07/21 14:03 Resp 18 04/07/21 14:03 BP 139/81 04/07/21 14:03 Pulse Ox 97 04/07/21 14:03 - Exam Physical Examinations : -Constitutiona : Cooperative , not in acute distress . -HEENT : nech : supple , no Lymphadenopathy , normal thyroid size . : eyes : no ptosis , no icterus, no photophobia . - neurologic : Cranial nerve II to XII intact , no focal neurological deffecit . -psychatric : alert , oriented X 3 , appropriate affect , intact judgment and insight . -Lymphatic : no Lymphadenopathy . - musculoskeltal : Lumber spine moter stegnth lower extremities ,thigh and legs 5/5 Right side , 5/5 Left side Assessment and Plan Plan: Assessment and plan=1-thoracic radiculopathy. Pain improved significantly after thoracic epidural steroid injection. he was given instruction about home exercise, patient given prescription for naproxen 500 mg Q day Description to follow up in the pain clinic when necessary, consider doing a thoracic epidural steroid injection if needed. - PQRS measures = - Patient's medications are documented in the chart. -Tobacco use is negative and counseling.Given. -Patient's has not received pneumococcal vaccine. -Advanced care planning discussed, patient not eligible. -Opiate contract not signed. -Pain positive and follow-up visit/procedure is scheduled. -Patient's blood pressure measured [ 139/81 ] , and documented in the record ,and patient will follow up with the primary care. -Patient's weight was measured and body mass index [ 39 ] above the normal limits and counseling was done. and patient instructed to follow-up with the primary care physician. -Patient was not identified as an unhealthy alcohol user Time with Patient: Less than 30
== END ==
LOC: PNWHC3 13:49
PROVIDERS: ATTEND Specialist
DX: M54.14 Radiculopathy, thoracic region (principal); F17.200 Nicotine dependence, unspecified, uncomplicated
CPT/HCPCS: 99211

== ENCOUNTER → 2023-08-24 | Outpatient (CLI) | payer BC, OTHER ==
--- NOTE | 2023-08-24 12:20 | XR ---
EXAMINATION TYPE: XR chest 2V DATE OF EXAM: 08/24/2023 12:16 PM CLINICAL INDICATION:Male, 53 years old with history of R05.1 ACUTE COUGH; [facility] COMPARISON: Chest radiographs from 07/05/2018 TECHNIQUE: XR chest 2V Frontal and lateral views of the chest. FINDINGS: Lungs/Pleura: There is no evidence of pleural effusion, focal consolidation, or pneumothorax. Pulmonary vascularity: Unremarkable. Heart/mediastinum: Cardiomediastinal silhouette is unremarkable. Musculoskeletal: No acute osseous pathology. IMPRESSION: No acute cardiopulmonary disease/process.
== END | disposition home or self-care (01) ==
LOC: RADXRMAIN 12:04
PROVIDERS: ATTEND Internal Medicine
DX: R05.1 Acute cough (principal)
CPT/HCPCS: 71046